=== PATIENT | female | born 1975 | race Caucasian/White ===

== ENCOUNTER → 2017-08-31 | Day surgery (SDC) | payer BC, OTHER ==
[2017-08-20 10:42] VITALS: BMI 39.0
[~2017-08-31] VITALS: Ht 154.9 cm; Wt 93.2 kg
[~2017-08-31] MED LIST: ATROPINE SULFATE 0.1 MG/ML 5ML SYR IV PRN; BUPIVACAINE 0.5 % 5 MG/1 ML MPF 30ML VIAL ONE; CEFAZOLIN SOD 1 GM VIAL ONE; CETI10TA10 PO; CLINDAMYCIN IV 900 MG in DEXTROSE 5% 50ML 44 ML IV SCH; DEXAMETHASONE SOD INJ 4 MG/ML VIAL ONE; EpHEDrine SULFATE 50MG/5ML SYR ONE; EpHEDrine SULFATE INJ 50 MG/ML AMP ONE; FENTANYL CITRATE INJ 50 MCG/1 ML 2 ML VIAL ONE; FURO-85 PO; GLYCOPYRROLATE INJ 0.2 MG/ML VIAL ONE; HEPARIN SOD (PORCINE) 1000 UNIT/ML 10 ML VIAL ONE; KETOROLAC TROMETHAMINE 30 MG/ML VIAL IV. PRN; KETOROLAC TROMETHAMINE 30 MG/ML VIAL ONE; LACTATED RINGER'S 1000ML 1,000 ML IV SCH; LIDOCAINE HCL 2% 2 ML VIAL (20MG/ML) ONE; LORA-741 PO; MIDAZOLAM HCL 1 MG/ML 2ML VIAL ONE; MoRPHine SULFATE 4 MG/ML 1 ML CARP\\VIAL IV PRN; NAPR-1169 PO; NEOSTIGMINE METHYLSULFATE 5 MG/5 ML SYR ONE; ONDANSETRON INJ 2 MG/ML 2 ML VIAL IV PRN; ONDANSETRON INJ 2 MG/ML 2 ML VIAL ONE; OXYCODONE/ACETAMINOPHEN 5-325 TAB PO PRN; PHENYLEPHRINE HCL INJ 10 MG/ML VIAL ONE; PROMETHAZINE HCL INJ 12.5 MG in SODIUM CHLORIDE 0.9% 50ML 50 ML IV PRN; PROPOFOL IV EMULSION 10 MG/ML 20 ML VIAL ONE; ROCURONIUM BROMIDE 10 MG/ML 5 ML VIAL ONE; SODIUM CHLORIDE 0.9% 1000ML 1,000 ML IV SCH; SUCCINYLCHOLINE CHLORIDE 20 MG/ML 10 ML VIAL IV ONE; VNTHFA/IN INH
[2017-08-31 08:47] VITALS: BP 152/91; PULSE 81; TEMP 37.3; O2SAT 97; Ht 154.9 cm; Wt 93.2 kg
--- NOTE | 2017-08-31 10:33 | History & Physical Bridge Note ---
H&P Re-Evaluation Bridge Note: I have examined the patient, reviewed the History & Physical and in the interval since the performance of the History & Physical I have noted the following changes of clinical significance: No changes noted
--- NOTE | 2017-08-31 12:41 | [facility] Post Operative Brief Note ---
Immediate Operative Summary Operative Date August 31, 2017. Pre-Operative Diagnosis 1. Calculus of Gallbladder Post-Operative Diagnosis same Procedure(s) Performed Laparoscopic Cholecystectomy Surgeon Dr. Lincoln Burrows [address] Justice Surgeon(s) Sudha Wilson PA-C Estimated Blood Loss 8mL Findings Consistent with Post-Op Diagnosis Specimens Permanent: A. Gallbladder and contents Drains None Anesthesia Type General Complication(s) none Disposition Disposition: Recovery Room / PACU
--- NOTE | 2017-08-31 12:44 | Discharge Instructions ---
Discharge Instructions Date of Service August 31, 2017. Admission Reason for Admission: Right Upper Quadrant Abdominal Pain Discharge Discharge Diagnosis / Problem: Same Discharge Goals Goal(s): Decrease discomfort Activity Recommendations Activity Limitations: per Instructions/Follow-up section Lifting Limitations: no more than 10 pounds (for 2 weeks) Shower/Bathe: tomorrow (showwer only) Post-Surgical ~ Discharge Instructions Activity Recommendations: - lifting limitation: (10 pounds for 2 weeks), - exercise/sex/sports limit: (nonstrenuous for 2 weeks), - driving or machine use limit: (none for 1 week), - Shower/bathe limit: (may shower beginning tomorrow) Diet: - Resume previous diet SPECIAL CARE INSTRUCTIONS: - May shower in 24 hours. Let water run over area and pat dry. - Leave steri strips on for one week. - Call the surgeon's office with any questions or concerns - - (ex. temperature higher than 101 degrees F, excessive bleeding or pain). MEDICATIONS: - Resume previous medications unless instructed otherwise by your surgeon. - Ibuprofen 600 mg every 6 hours with food - Percocet 1 every 4 hours, as needed for pain FOLLOW UP VISIT: - If not already scheduled, please call the office to schedule a two week follow-up appointment. Office number . Current Hospital Diet Patient's current hospital diet: Discharge Diet Recommended Diet: Regular Diet Procedures Procedures Performed: Laparoscopic Cholecystectomy Pending Studies Studies pending at discharge: yes List of pending studies: Pathology Medical Emergencies . Who to Call and When: Medical Emergencies: If at any time you feel your situation is an emergency, please call 911 immediately. . Non-Emergent Contact Non-Emergency issues call your: Primary Care Provider, Surgeon Call Non-Emergent contact if: your pain is worsening, wound has increased redness, wound has increased pain . "Provider Documentation" section prepared by Lincoln Burrows. .
[2017-08-31] MEDS: FENTANYL CITRATE INJ 50 MCG/1 ML 2 ML VIAL IV PRN ×2 (13:22→13:28)
--- NOTE | 2017-08-31 13:51 | Anesthesiology Progress Note ---
Anesthesia Post Op Note Date & Time August 31, 2017 at 13:50 Vital Signs Pain Intensity: 2 Vital Signs Past 12 Hours Date Time Temp Pulse Resp B/P (MAP) Pulse Ox O2 Delivery O2 Flow Rate FiO2 08/31/17 13:45 36.3 64 17 123/69 92 Room Air 08/31/17 13:35 69 19 125/81 94 Room Air 08/31/17 13:25 74 16 130/67 98 Oxymask 10 08/31/17 13:15 66 12 131/73 99 Oxymask 10 08/31/17 13:05 36.4 89 14 128/68 99 Oxymask 10 08/31/17 08:47 37.3 81 18 152/91 (111) 97 Room Air Notes Mental Status: alert / awake / arousable, participated in evaluation Pt Amnestic to Procedure: Yes Nausea / Vomiting: adequately controlled Pain: adequately controlled Airway Patency, RR, SpO2: stable & adequate BP & HR: stable & adequate Hydration State: stable & adequate Anesthetic Complications: no major complications apparent
[2017-08-31 13:55] VITALS: BP 121/62; PULSE 76; TEMP 36.7; O2SAT 95
[2017-08-31 14:25] VITALS: BP 118/61; PULSE 78; TEMP 36.7; O2SAT 95
--- NOTE | 2017-08-31 14:26 | MEDICAL INTERVAL PROGRESS NOTE ---
DATE: 08/31/2017 PREOPERATIVE DIAGNOSES: Cholelithiasis, chronic cholecystitis. POSTOPERATIVE DIAGNOSES: Same. PROCEDURE: Laparoscopic cholecystectomy. SURGEON: Lincoln Burrows MD GUARD DRIVER: Sudha Wilson PA-C FINDINGS: The gallbladder was packed full with stones. There were multiple adhesions of the omentum to the length of the gallbladder. There were some flimsy adhesions of the duodenum to the infundibulum area as well. The gallbladder wall was not thickened. The cystic duct was not dilated. The liver was of normal size and contour, and the visible bowel appeared normal. TECHNIQUE: The patient was given general anesthetic and the area was prepped and draped in the usual sterile fashion. Transverse incision was made below the umbilicus, carried down through the subcutaneous tissue to the fascia which was grasped with 2 Hemant clamps and incised between. The peritoneum was identified, incised, and the introducer was placed bluntly. The abdomen was then insufflated to a pressure of 15 mmHg with carbon dioxide. The upper midline, midclavicular and anterior axillary introducers were placed under direct vision through small skin incisions. Traction was placed on the gallbladder and the adhesions to the gallbladder were taken down using blunt cautery dissection for the fundus and body. The flimsy adhesions of the duodenum were taken down without cautery. That exposed the infundibulum and neck of the gallbladder. There were some adhesions of the omentum to the undersurface of the right lobe of the liver that were also divided so as to not tear the capsule during the procedure. The infundibulum was elevated and the peritoneum on the lateral side was opened. The gallbladder was dissected away from the liver on the lateral side as well. Further dissection was carried over the anterior surface of the infundibulum where there was a lot of fatty tissue and connective tissue, but this was all taken down with cautery and peeled towards the common bile duct entering the triangle of Calot and the attachments of the gallbladder to the liver on that medial side as well. That allowed for much better mobilization and mobility. That allowed me then to further dissect the anterior surface of the infundibulum and worked down towards identifying the cystic duct. The cystic duct was then isolated on the medial side peeling the tissue down towards the common bile duct. A similar dissection was then carried out on the medial side. I then dissected the infundibulum away behind the cystic duct and that was dissected away from the liver which allowed for better mobility and identifying of the cystic artery lying posterior to the cystic duct. There was a plane easily established between those 2 structures, which allowed me to confidently identify the cystic duct gallbladder junction. Three clips were placed on the proximal cystic duct, one near the junction with the gallbladder and it was divided. The infundibulum was elevated. The cystic artery was isolated and clamped 3 times proximally once near the gallbladder and divided. The gallbladder was then peeled off the liver bed using electrocautery. There was 1 other vessel that was encountered. There was a small posterior branch that was clamped and also cauterized and divided. The gallbladder dissection off the liver bed was then completed. The gallbladder was placed into an Endobag and brought out through the upper midline incision where I had to open the gallbladder on the outside, extract the gallbladder within the bag, but that was able to be accomplished. That introducer was replaced and the liver edge was elevated. The subdiaphragmatic and subhepatic spaces were irrigated and the irrigation was removed. There was a small amount of oozing from the omentum where there had been an adhesion and this was easily controlled with cautery. Further irrigation was performed. The irrigation removed and that was repeated until the return was clear. The gallbladder bed of the liver was inspected. There was no bleeding. The previously placed clips were intact. The gallbladder was allowed to fall back into its anatomic position. The gas was allowed to escape and introducers were removed. The fascia of the umbilical and upper midline introducer sites was closed with interrupted 0 Vicryl and skin of all the incisions was closed with 4-0 Monocryl in either an interrupted or running subcuticular fashion. Skin was anesthetized with 0.5% Marcaine. The skin was cleansed, dried, benzoin placed, Steri-Strips applied. The estimated blood loss was 8 mL. Sponge, needle and instrument counts were correct prior to closure. The patient tolerated the surgical procedure without complication and was transferred to recovery.
--- NOTE | 2017-09-14 19:16 | OPERATIVE REPORT ---
DATE OF OPERATION: 08/31/2017 PREOPERATIVE DIAGNOSES: Cholelithiasis, chronic cholecystitis. POSTOPERATIVE DIAGNOSES: Same. PROCEDURE: Laparoscopic cholecystectomy. SURGEON: Lincoln Burrows MD SPARE PARTS CLERK: Sudha Wilson PA-C. FINDINGS: Gallbladder had multiple stones within the lumen. The cystic duct was not dilated. The gallbladder was not dilated. TECHNIQUE: The patient was given a general anesthetic, and the area was prepped and draped in the usual sterile fashion. A transverse incision was made near the umbilicus, was carried down through the subcutaneous tissue to the fascia, which was grasped with 2 Hemant clamps and incised between. The peritoneum was identified and incised, and the introducer was placed bluntly. The abdomen was then insufflated to a pressure of 15 mmHg with carbon dioxide. The upper midline, midclavicular, and anterior axillary introducers were placed under direct vision through small skin incisions. Traction was placed on the gallbladder in beginning of the infundibulum. The peritoneum was opened and peeled down toward the common bile duct. This dissection was then carried over the anterior surface of the gallbladder and into the triangle of Calot, which was opened. The gallbladder was dissected away from the liver, the infundibulum away from both sides allowing better mobility. Further dissection was carried out until the cystic duct was identified. The cystic duct gallbladder junction was then identified. Clips were placed on the proximal cystic duct, one near the junction with the gallbladder and was divided. Further dissection was carried out until the cystic artery was identified. It was clipped proximally and near the gallbladder and divided. The gallbladder was then peeled off the liver bed using electrocautery. Gallbladder was placed into an Endobag and brought out through the upper midline incision where I had to open the gallbladder and remove some of the stones in order to extract the gallbladder, that was accomplished. The introducer was replaced. Liver edge was elevated, and the gallbladder bed of the liver was inspected. Any oozing was controlled with cautery. The previously placed clips were intact. Gas was allowed to escape, and the introducers were removed. The fascia of the umbilical and upper midline introducer sites was closed with interrupted 0 Vicryl, and the skin of all the incisions was closed with 4-0 Monocryl in either an interrupted or running subcuticular fashion. The skin was anesthetized with 0.5% Marcaine. The skin was cleansed and dried, benzoin placed, Steri-Strips applied. Estimated blood loss was 8 mL. Sponge, needle, and instrument counts were correct prior to closure. The patient tolerated the surgical procedure without complication and was transferred to recovery. I attest to the content of the Intraoperative Record and any orders documented therein. Any exception s are noted below.
== END | disposition home or self-care (01) ==
LOC: C.ACU 08:10
PROVIDERS: ATTEND Surgery
DX: K80.10 Calculus of gallbladder with chronic cholecystitis without obstruction (principal); R10.11 Right upper quadrant pain; J45.909 Unspecified asthma, uncomplicated; E66.9 Obesity, unspecified; F41.9 Anxiety disorder, unspecified; Z88.5 Allergy status to narcotic agent; Z88.2 Allergy status to sulfonamides; Z87.891 Personal history of nicotine dependence